=== PATIENT | female | born 1980 | race Caucasian/White ===

== ENCOUNTER 2020-09-14 16:24 | Inpatient (IN) ==
[2020-09-14] MEDS ORDERED: Acetaminophen 325 MG TABLET PO PRN (17:44)
[2020-09-14] MEDS ORDERED: Melatonin 3 MG TABLET PO PRN (17:44)
[2020-09-14] MEDS ORDERED: Ondansetron 4 MG/2 ML VIAL IVP PRN (17:44)
[2020-09-14] MEDS ORDERED: Naloxone 0.4 MG/ML INJ IVP PRN (17:44)
[2020-09-14] MEDS ORDERED: *HR* Promethazine 25 MG/ML VIAL IM PRN (17:44)
[2020-09-14] MEDS ORDERED: Sennosides/Docusate Sodium TABLET PO PRN (17:47)
[2020-09-14 20:06] LABS: Hepatitis B Surface Antigen Nonreactive (Nonreactive)
[2020-09-14] MEDS: Ringers Solution, Lactated 1,000 ML IVC SCH (20:06)
[2020-09-14 20:34] LABS: Hepatitis C Virus Antibody Nonreactive (Nonreactive)
[2020-09-14 20:35] LABS: Hepatitis B Core IgM Nonreactive (Nonreactive)
[2020-09-14] MEDS: *HR* HYDROmorphone (PF) 1 MG/ML SYRINGE IVP PRN (22:37)
[2020-09-15 02:40] LABS: Hepatitis A Antibody IgM Nonreactive (Nonreactive)
[2020-09-15] MEDS: Ringers Solution, Lactated 1,000 ML IVC SCH ×2 (04:45→12:48)
[2020-09-15] MEDS: *HR* Heparin 5,000 UNIT/ML VIAL SQ SCH ×2 (04:49→19:23)
[2020-09-15] MEDS: *HR* HYDROmorphone (PF) 1 MG/ML SYRINGE IVP PRN ×3 (04:53→19:29)
[2020-09-15 06:12] LABS: Basophils % 0.5 %; Eosinophils # 0.1 K/mcL (0.0-0.6); Eosinophils % 1.6 %; Hematocrit 38.6 % (35.3-44.9); Hemoglobin 12.6 g/dL (11.5-15.4); Immature Granulocytes % 0.2 % (0-4); Lymphocytes # 2.8 K/mcL (0.6-4.6); Lymphocytes % 64.7 %; Mean Corpuscular HGB Conc 32.6 g/dL (31.6-35.5); Mean Corpuscular Hemoglobin 30.3 pg (28.0-33.3); Mean Corpuscular Volume 92.8 fL (83.0-100.0); Mean Platelet Volume 10.3 fL (9.4-12.4); Monocytes # 0.4 K/mcL (0.0-1.3); Monocytes % 8.4 %; Neutrophils # 1.1 K/mcL (1.6-8.9); Platelet Count 153 K/mcL (140-400); Red Blood Count 4.16 M/mcL (3.82-4.97); Red Cell Distribution Width 13.8 % (11.5-14.5); Segmented Neutrophils % 24.6 %; White Blood Count 4.3 K/mcL (4.3-11.1)
[2020-09-15 06:30] LABS: Alanine Aminotransferase 150 Units/L (7-52); Albumin 3.5 g/dL (3.5-5.7); Albumin/Globulin Ratio 1.5 (1.1-2.2); Alkaline Phosphatase 258 Units/L (34-104); Aspartate Amino Transferase 115 Units/L (13-39); BUN/Creatinine Ratio 16 (6-26); Bilirubin,Total 3.6 mg/dL (0.3-1.0); Blood Urea Nitrogen 11 mg/dL (6-20); Calcium 8.4 mg/dL (8.6-10.3); Carbon Dioxide 27 mEq/L (23-29); Chloride 103 mEq/L (98-107); Globulin 2.4 g/dL (2.4-3.5); Glucose 102 mg/dL (70-105); Osmolality,Calculated 286 (280-300); Potassium 3.9 mEq/L (3.5-5.1); Sodium 138 mEq/L (136-145); Total Protein 5.9 g/dL (6.4-8.9); eGFR For African Americans > 60 (> 60); eGFR For Non-African Americans > 60 (> 60)
[2020-09-15] MEDS ORDERED: *HR* LORazepam 2 MG/ML VIAL IVP ONE (08:59)
[2020-09-16 04:50] LABS: Basophils % 0.3 %; Eosinophils # 0.1 K/mcL (0.0-0.6); Eosinophils % 1.7 %; Hematocrit 37.3 % (35.3-44.9); Hemoglobin 12.1 g/dL (11.5-15.4); Immature Granulocytes % 0.3 % (0-4); Lymphocytes % 56.2 %; Mean Corpuscular HGB Conc 32.4 g/dL (31.6-35.5); Mean Corpuscular Hemoglobin 30.5 pg (28.0-33.3); Mean Platelet Volume 10.3 fL (9.4-12.4); Monocytes # 0.3 K/mcL (0.0-1.3); Monocytes % 7.9 %; Neutrophils # 1.2 K/mcL (1.6-8.9); Platelet Count 143 K/mcL (140-400); Red Blood Count 3.97 M/mcL (3.82-4.97); Red Cell Distribution Width 13.8 % (11.5-14.5); Segmented Neutrophils % 33.6 %; White Blood Count 3.5 K/mcL (4.3-11.1)
[2020-09-16] MEDS: *HR* Heparin 5,000 UNIT/ML VIAL SQ SCH ×2 (05:08→18:33)
[2020-09-16 05:10] LABS: Alanine Aminotransferase 146 Units/L (7-52); Albumin 3.4 g/dL (3.5-5.7); Albumin/Globulin Ratio 1.4 (1.1-2.2); Alkaline Phosphatase 235 Units/L (34-104); Aspartate Amino Transferase 98 Units/L (13-39); BUN/Creatinine Ratio 14 (6-26); Bilirubin,Total 3.1 mg/dL (0.3-1.0); Blood Urea Nitrogen 8 mg/dL (6-20); Calcium 8.5 mg/dL (8.6-10.3); Carbon Dioxide 27 mEq/L (23-29); Chloride 103 mEq/L (98-107); Globulin 2.4 g/dL (2.4-3.5); Glucose 103 mg/dL (70-105); Osmolality,Calculated 285 (280-300); Potassium 3.7 mEq/L (3.5-5.1); Sodium 138 mEq/L (136-145); Total Protein 5.8 g/dL (6.4-8.9); eGFR For African Americans > 60 (> 60); eGFR For Non-African Americans > 60 (> 60)
[2020-09-16] MEDS ORDERED: *HR* OxyCODONE Immed Rel 5 MG TABLET PO PRN (09:38)
[2020-09-16] MEDS ORDERED: Promethazine 6.25 MG in Water for inj. (sterile) 20 ML IVPB PRN ×2 (09:38→14:08)
[2020-09-16] MEDS ORDERED: *HR* HYDROmorphone PF 0.5 MG/0.5 ML SYRINGE IVP PRN ×2 (09:38→14:08)
[2020-09-16] MEDS ORDERED: Ondansetron 4 MG/2 ML VIAL IVP PRN ×3 (09:38→14:08)
[2020-09-16] MEDS ORDERED: *HR* Propofol 200 MG/20 ML VIAL IVP ONE ×2 (10:14→12:10)
[2020-09-16] MEDS ORDERED: *HR* Midazolam HCl 2 MG/2 ML VIAL ONE (10:14)
[2020-09-16] MEDS ORDERED: *HR* FentaNYL (PF) 100 MCG/2 ML VIAL ONE ×2 (10:14→12:38)
[2020-09-16] MEDS ORDERED: Lidocaine -MPF 2% 2 ML VIAL ONE (10:15)
[2020-09-16] MEDS ORDERED: *HR* Rocuronium Bromide 50 MG/5 ML VIAL ONE (10:48)
[2020-09-16] MEDS ORDERED: Isovue-300 50ML VIAL ONE (11:27)
[2020-09-16] MEDS ORDERED: CefOXitin 1,000 MG VIAL ONE (11:27)
[2020-09-16] MEDS ORDERED: Ondansetron 4 MG/2 ML VIAL ONE (11:28)
[2020-09-16] MEDS ORDERED: Acetaminophen IV 1,000 MG/100 ML BAG IVPB ONE (11:42)
[2020-09-16] MEDS ORDERED: CefOXitin 2,000 MG VIAL ONE (11:45)
[2020-09-16] MEDS ORDERED: EPHEDrine 50 MG/ML VIAL ONE (12:27)
[2020-09-16] MEDS ORDERED: Sugammadex Sodium 200 MG/2 ML VIAL IV ONE (12:27)
[2020-09-16] MEDS ORDERED: *HR* HYDROMORPHONE 2 MG/ML VIAL ONE (13:01)
[2020-09-16] MEDS ORDERED: Acetaminophen 325 MG TABLET PO PRN (14:08)
[2020-09-16] MEDS ORDERED: Melatonin 3 MG TABLET PO PRN (14:08)
[2020-09-16] MEDS ORDERED: *HR* Promethazine 25 MG/ML VIAL IM PRN (14:08)
[2020-09-16] MEDS ORDERED: Naloxone 0.4 MG/ML INJ IVP PRN (14:08)
[2020-09-16] MEDS ORDERED: Sennosides/Docusate Sodium TABLET PO PRN (14:08)
[2020-09-16] MEDS ORDERED: *HR* HYDROmorphone (PF) 1 MG/ML SYRINGE IVP PRN (14:08)
[2020-09-16] MEDS: Ringers Solution, Lactated 1,000 ML IVC SCH ×3 (15:25→19:16)
[2020-09-17] MEDS: Ringers Solution, Lactated 1,000 ML IVC SCH (03:52)
[2020-09-17 04:20] LABS: Basophils % 0.2 %; Eosinophils % 0.2 %; Hematocrit 36.3 % (35.3-44.9); Hemoglobin 11.8 g/dL (11.5-15.4); Lymphocytes # 2.2 K/mcL (0.6-4.6); Lymphocytes % 45.3 %; Mean Corpuscular HGB Conc 32.5 g/dL (31.6-35.5); Mean Corpuscular Volume 92.4 fL (83.0-100.0); Mean Platelet Volume 10.7 fL (9.4-12.4); Monocytes # 0.4 K/mcL (0.0-1.3); Monocytes % 7.4 %; Neutrophils # 2.3 K/mcL (1.6-8.9); Platelet Count 166 K/mcL (140-400); Red Blood Count 3.93 M/mcL (3.82-4.97); Red Cell Distribution Width 13.4 % (11.5-14.5); Segmented Neutrophils % 46.9 %; White Blood Count 4.9 K/mcL (4.3-11.1)
[2020-09-17 04:38] LABS: BUN/Creatinine Ratio 13 (6-26); Blood Urea Nitrogen 7 mg/dL (6-20); Calcium 8.7 mg/dL (8.6-10.3); Carbon Dioxide 29 mEq/L (23-29); Chloride 103 mEq/L (98-107); Glucose 105 mg/dL (70-105); Osmolality,Calculated 284 (280-300); Potassium 3.9 mEq/L (3.5-5.1); Sodium 138 mEq/L (136-145); eGFR For African Americans > 60 (> 60); eGFR For Non-African Americans > 60 (> 60)
[2020-09-17] MEDS: *HR* Heparin 5,000 UNIT/ML VIAL SQ SCH (05:02)
[2020-09-17 07:57] VITALS: O2SAT 97
[2020-09-17 11:00] VITALS: BP 111/76; PULSE 62; TEMP 98.3
== END 2020-09-17 17:14 | disposition home or self-care (01) | DRG 263 ==
LOC: 3ANU → SUATTDRO 09-16 18:10
PROVIDERS: ADMIT Internal Medicine; ATTEND Internal Medicine